=== PATIENT | female | born 1995 ===

== ENCOUNTER 2021-05-23 21:33 | Emergency (ER) | payer OTHER ==
[~2021-05-23] VITALS: Ht 154.9 cm; Wt 100.0 kg
[2021-05-23 22:29] VITALS: TEMP 98.1
[2021-05-24] MEDS ORDERED: PREDNISONE20 MG PO (00:02)
[2021-05-24] MEDS ORDERED: TESSALON P100 MG/CAP PO (00:02)
[2021-05-24 00:13] VITALS: BP 125/85; PULSE 97
== END 2021-05-24 00:13 | disposition home or self-care (01) ==
LOC: COL.ER 21:33
DX: J20.9 Acute bronchitis, unspecified (principal)
CPT/HCPCS: J7512